=== PATIENT | male | born 1970 | race African-American/Black ===

== ENCOUNTER 2020-01-20 18:38 | Emergency (ER) | payer BC ==
[~2020-01-20] VITALS: Ht 180.3 cm; Wt 113.4 kg
[2020-01-20] MEDS ORDERED: KETOROLAC TROMETHAMINE 30 MG/ML VIAL IM STA (19:02)
[2020-01-20] MEDS ORDERED: DEXAMETHASONE SOD PHOS 10 MG/1 ML VIAL IM ONE (19:15)
[2020-01-20] MEDS ORDERED: KETOROLAC TROMETHAMINE 30 MG/ML VIAL ONE (19:17)
[2020-01-20] MEDS ORDERED: DEXAMETHASONE SOD PHOS INJ 4 MG/ML VIAL ONE ×2 (19:17)
--- NOTE | 2020-01-20 19:20 | Emergency Department Note ---
History of Present Illnes History of Present Illness Chief Complaint: Extremity Trauma/Pain History of Present Illness This is a 49 year old male Chief Complaint Comment pt states he was lifting a heavy bag 3 weeks ago and hurt his left elbow, pt states not getting better. has seen PCP and told it was a sprain. 12/05 pain, denies CP or SOB . Historian: Patient Arrival Mode: Car Onset (how long ago): week(s) (3) Location: right elbow Quality: dull Radiation: Denies non-radiation, Denies back, Denies neck, Denies extremity, Denies abdomen, Denies periumbilical, Denies flank, Denies proximal, Denies distal, Denies other Severity: moderate Onset quality: gradual Duration (how long): week(s) (3) Timing of current episode: constant Progression: unchanged Chronicity: new Context: Denies recent illness, Denies recent surgery, Denies recent immobilization, Denies recent travel, Denies trauma/injury, Denies new medica tions, Denies hx of DVT/PE, Denies non-compliance w/ medications, Denies other Relieving factors: none Exacerbating factors: none Associated symptoms: Denies denies other symptoms, Denies confusion, Denies chest pain, Denies cough, Denies diaphoresis, Denies fever/chills, Denies headaches, Denies loss of appetite, Denies malaise, Denies nausea/vomiting, Denies rash, Denies seizure, Denies shortness of breath, Denies syncope, Denies weakness, Denies other Treatments prior to arrival: none Past Medical/Family History Physician Review I have reviewed the patient's past medical and family history. Any updates have been documented here. Past Medical History Recent Fever: No Clinical Suspicion of Infectio: No New/Unexplained Change in Ment: No Past Medical History: Hypertension, Diabetes Past Surgical History: None Social History Smoking Cessation: Never Smoker Counseling Performed: No Alcohol Use: Occasional Any Illegal Drug Use: No Physically hurt or threatened: No Other Any Pre-Existing Lines (PICC,: No Review of Systems Review of Systems Constitutional: Reports no symptoms EENTM: Reports no symptoms Cardiovascular: Reports no symptoms Respiratory: Reports no symptoms Gastrointestinal: Reports no symptoms Genitourinary: Reports no symptoms Musculoskeletal: Reports as per HPI Integumentary: Reports no symptoms Neurological: Reports no symptoms Psychological: Reports no symptoms Endocrine: Reports no symptoms Hematological/Lymphatic: Reports no symptoms Physical Exam Related Data Allergies: Coded Allergies: Penicillins (Verified Allergy, Unknown, 01/20/20) Triage Vital Signs Vital Signs Date Time Temp Pulse Resp B/P (MAP) Pulse Ox O2 Delivery O2 Flow Rate FiO2 01/20/20 18:52 99.2 101 18 151/90 99 Vital signs reviewed: Yes Physical Exam CONSTITUTIONAL Constitutional: Present well-developed, Present well-nourished HENT HENT: Present normocephalic, Present atraumatic, Present oropharynx clear/moist, Present nose normal HENT L/R: Present left ext ear normal, Present right ext ear normal EYES Eyes: Reports PERRL, Reports conjunctivae normal NECK Neck: Present ROM normal PULMONARY Pulmonary: Present effort normal, Present breath sounds normal CARDIOVASCULAR Cardiovascular: Present regular rhythm, Present heart sounds normal, Present capillary refill normal, Present normal rate GASTROINTESTINAL Abdominal: Present soft, Present nontender, Present bowel sounds normal GENITOURINARY Genitourinary: Present exam deferred SKIN Skin: Present warm, Present dry MUSCULOSKELETAL Musculoskeletal: Present ROM normal, Present tenderness (right elbow) NEUROLOGICAL Neurological: Present alert, Present oriented x 3, Present no gross motor or sensory deficits PSYCHOLOGICAL Psychological: Present mood/affect normal, Present judgement normal Assessment & Plan Medical Decision Making MDM tendonitis bursitis Reassessment Reassessment time: 19:19 Reassessment better Assessment & Plan Final Impression: (1) Tendinitis of right elbow (2) Pain in right elbow Depart Disposition: HOME, SELF-CARE Last Vital Signs Date Time Temp Pulse Resp B/P (MAP) Pulse Ox O2 Delivery O2 Flow Rate FiO2 01/20/20 18:52 99.2 101 18 151/90 99 Medications in the ED Dexamethasone Sodium Phosphate 10 mg ONCE ONCE IM ; Start 01/20/20 at 19:15; Stop 01/20/20 at 19:16; Status DC Ketorolac Tromethamine 30 mg ONCE STAT IM ; Start 01/20/20 at 19:02; Stop 01/20/20 at 19:08; Status DC Dexamethasone Sodium Phosphate 8 mg STK-MED ONCE .ROUTE ; Start 01/20/20 at 19:17; Stop 01/20/20 at 19:13; Status DC Ketorolac Tromethamine 30 mg STK-MED ONCE .ROUTE ; Start 01/20/20 at 19:17; Stop 01/20/20 at 19:13; Status DC Dexamethasone Sodium Phosphate 4 mg STK-MED ONCE .ROUTE ; Start 01/20/20 at 19:17; Stop 01/20/20 at 19:13; Status DC MALIHA DOW MD Jan 20, 2020 19:20
[2020-01-20] MEDS ORDERED: NAPROSYN500 MG PO (19:21)
[2020-01-20] MEDS ORDERED: PREDNISONE20 MG PO (19:21)
== END 2020-01-20 19:45 | disposition home or self-care (01) ==
LOC: FSED 19:00
DX: M25.521 Pain in right elbow (principal); M77.9 Enthesopathy, unspecified; X50.0XXA Overexertion from strenuous movement or load, initial encounter; I10 Essential (primary) hypertension; E11.9 Type 2 diabetes mellitus without complications
CPT/HCPCS: 96372; 99282; J1100; J1885; 93005